=== PATIENT | male | born 1965 | race Caucasian/White ===

== ENCOUNTER 2019-02-06 14:22 | Emergency (ER) | payer MEDICAID, OTHER ==
[~2019-02-06] VITALS: Ht 180.3 cm; Wt 78.9 kg
[2019-02-06 14:44] VITALS: BP 188/115
[2019-02-06 17:37] LABS: Basophils # (auto) 0.1 uL; Basophils % (auto) 1.2 % (0.0-2.0); Eosinophils # (auto) 0.1 uL; Eosinophils % (auto) 0.9 % (0.0-7.0); Hemoglobin 14.3 g/dL (13.5-17.5); Lymphocytes # (auto) 1.3 uL; Lymphocytes % (auto) 11.2 % (10.0-50.0); Mean Corpuscular Hemoglobin 28.7 pg (28.0-32.0); Mean Corpuscular Hgb Conc. 32.5 g/dL (32.0-36.0); Mean Corpuscular Volume 88.4 fL (80.0-100.0); Monocytes # (auto) 0.9 uL; Monocytes % (auto) 8.1 % (0.0-12.0); Neutrophils # (auto) 8.9 uL; Neutrophils % (auto) 78.6 % (37.0-80.0); Platelet Count (auto) 356 10^3/uL (140-450); Red Blood Cells 4.97 10^6/uL (4.5-5.90); Red Cell Distribution Width 14.7 % (11.8-14.3); White Blood Cell 11.4 10^3/uL (4.4-10.8)
[2019-02-06 17:59] LABS: INR 1.03 (0.9-1.15); Partial Thromboplastin Time 27.7 sec (23.64-32.05)
== END 2019-02-06 20:59 | disposition home or self-care (01) ==
LOC: ER 14:43
DX: L03.116 Cellulitis of left lower limb (principal); L03.115 Cellulitis of right lower limb; Z45.2 Encounter for adjustment and management of vascular access device; Z90.89 Acquired absence of other organs
CPT/HCPCS: 36410; 36415; 85025; 85610; 85730